=== PATIENT | female | born 1995 | race Two or more races ===

== ENCOUNTER 2017-08-25 21:08 | Emergency (ER) | payer BC ==
[~2017-08-25] VITALS: Ht 170.2 cm; Wt 88.5 kg
[2017-08-25 21:30] VITALS: BP 117/79
[2017-08-25] MEDS ORDERED: ROBAXIN-750750 MG PO (22:23)
[2017-08-25] MEDS ORDERED: IBUPROFEN600 MG ORAL (22:23)
[2017-08-25 22:35] VITALS: BP 117/79
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
--- NOTE | 2017-08-26 13:47 | Diagnostic Imaging Report ---
Indication: Trauma Technique: XRAY Knee 3v L Comparison: None Findings: There is no acute fracture or dislocation. There is marked soft tissue swelling with reticulation/edema in the soft tissues about the medial aspect of the knee. There is likely a small laceration. No radiopaque foreign body seen. Impression: Soft tissue swelling/edema and evidence of skin laceration in the soft tissues about the medial aspect of the knee. No acute fracture or dislocation. No radiopaque foreign body seen.
== END 2017-08-25 22:35 | disposition home or self-care (01) ==
LOC: EMR 21:44
DX: S80.02XA Contusion of left knee, initial encounter (principal); S80.212A Abrasion, left knee, initial encounter; V23.4XXA Motorcycle driver injured in collision with car, pick-up truck or van in traffic accident, initial encounter; Y93.55 Activity, bike riding; Y92.410 Unspecified street and highway as the place of occurrence of the external cause
CPT/HCPCS: 99283